=== PATIENT | male | born 1970 | race Caucasian/White ===

== ENCOUNTER 2019-02-12 15:06 | Outpatient (REF) | payer MEDICAID, SELFPAY ==
[2019-02-12 18:54] LABS: Abs Immature Grans 0.04 k/cumm (0.0-0.09); Absolute Basophil Count 0.03 k/cumm (0.0-0.2); Absolute Eosinophil Count 0.12 k/cumm (0.0-0.7); Absolute Lymphocyte Count 2.11 k/cumm (1.2-3.4); Absolute Monocyte Count 0.66 k/cumm (0.11-0.7); Absolute Neutrophil Count 4.55 k/cumm (1.2-6.7); Basophils % 0.4; Eosinophils % 1.6; Immature Grans % 0.5; Lymphocytes % 28.1; Mean Corp. HGB Concentration 35.7 g/dL (32.0-36.0); Mean Corpuscular Hemoglobin 31.1 pg (27.0-33.0); Mean Corpuscular Volume 87.1 fL (80-95); Mean Platelet Volume 9.6 fL (8.0-11.0); Monocytes % 8.8; Neutrophils % 60.6; Platelet Count 312 x1000/uL (130-400); RBC 4.82 m/cumm (4.50-6.00); RBC Distribution Width 12.1 % (11.8-14.1); White Blood Cell Count 7.51 k/cumm (4.4-10.8)
[2019-02-12 19:11] LABS: ALT 33 U/L (12-78); AST 16 U/L (15-37); Albumin 4.4 g/dL (3.4-5.0); Alkaline Phosphatase 87 U/L (46-116); Anion Gap 9.5 mmol/L (3-11); BUN 18 mg/dL (7-18); Bilirubin, Total 0.6 mg/dL (0.2-1.0); CO2 27.5 mmol/L (21.0-32.0); CREATININE 1.05 mg/dL (0.70-1.30); Chloride 105 mmol/L (98-107); Creatine Kinase 78 U/L (39-308); Glucose 101 mg/dL (70-100); Potassium 3.9 mmol/L (3.5-5.1); Sodium 142 mmol/L (136-145); TSH 1.17 uIU/mL (0.36-3.74); Total Protein 7.4 g/dL (6.4-8.2)
[2019-02-12 19:59] LABS: ESR 7 mm/hr (0-15)
[2019-02-13 16:27] LABS: CRP, High Sensitivity 1.53 mg/L
[2019-02-14 05:53] LABS: Vitamin D 25 Total 57.5 ng/ml (30-100)
[2019-02-14 10:47] LABS: HIV-1/2 Ag & Ab Screen Negative (NEGAT)
[2019-02-14 10:55] LABS: Hepatitis C Ab w Rflx HCV PCR Negative (NEGAT)
[2019-02-14 12:14] LABS: Lyme Ab w Rflx to Lyme Confirm Negative
[2019-02-14 15:25] LABS: ANA Interpretation Negative (NEGAT)
[2019-02-15 01:45] LABS: Anaplasma phagocytophilum Negative (Negative); B. miyamotoi PCR Negative (Negative); Babesia divergens/MO-1 Negative (Negative); Babesia duncani Negative (Negative); Babesia microti Negative (Negative); Ehrlichia chaffeensis Negative (Negative); Ehrlichia ewingii/canis Negative (Negative); Ehrlichia muris eauclairensis Negative (Negative)
== END 2019-02-12 15:26 ==
LOC: NCHCN 15:06
PROVIDERS: PCP Internal Medicine; Visit Provider Nurse Practitioner Family
DX: R68.89 Other general symptoms and signs (principal); R53.83 Other fatigue; R53.81 Other malaise; Z11.4 Encounter for screening for human immunodeficiency virus [HIV]; Z11.59 Encounter for screening for other viral diseases
CPT/HCPCS: 80053; 82306; 82550; 85652; 86141; 86803; 87389; 87798; 84443; 85025; 86038; 86618

== ENCOUNTER 2023-01-20 13:31 | Outpatient (REF) | payer MEDICAID, SELFPAY ==
[2023-01-20 19:00] LABS: Abs Immature Grans 0.07 10^3/uL (0.0-0.06); Absolute Basophil Count 0.07 10^3/uL (0.0-0.2); Absolute Eosinophil Count 0.15 10^3/uL (0.0-0.7); Absolute Lymphocyte Count 2.02 10^3/uL (1.2-3.4); Absolute Monocyte Count 0.71 10^3/uL (0.1-0.8); Absolute Neutrophil Count 4.56 10^3/uL (1.2-6.7); Basophils % 0.9; HCT 40.7 % (40.0-50.0); HGB 14.5 g/dL (13.5-17.5); Immature Grans % 0.9; Lymphocytes % 26.6; MCH 30.8 pg (27.0-33.0); MCHC 35.6 % (32.0-36.0); MCV 86 fL (80-95); MPV 9.5 fL (8.0-11.0); Monocytes % 9.4; Neutrophils % 60.2; Platelet Count 265 10^3/uL (130-400); RBC 4.71 10^6/uL (4.36-5.78); RDW 11.9 % (11.8-14.1); RDW-SD 37.4 fL; WBC 7.58 10^3/uL (4.4-10.8)
[2023-01-20 19:40] LABS: ALT 47 U/L (16-63); AST 29 U/L (15-37); Albumin 3.8 g/dL (3.4-5.0); Alkaline Phosphatase 96 U/L (46-116); Anion Gap 9.9 mmol/L (3-11); BUN 19 mg/dL (7-18); Bilirubin, Total 0.7 mg/dL (0.2-1.0); CO2 26.1 mmol/L (21.0-32.0); CREATININE 1.1 mg/dL (0.70-1.30); Calcium 8.5 mg/dL (8.5-10.1); Chloride 106 mmol/L (98-107); Estimated GFR 80.27 (mL/min/1.73m2); Glucose 110 mg/dL (74-106); Magnesium 2.2 mg/dL (1.8-2.4); Potassium 3.8 mmol/L (3.5-5.1); Sodium 142 mmol/L (136-145); Total Protein 6.8 g/dL (6.4-8.2); Vitamin B12 533 pg/mL (193-986)
[2023-01-25 09:47] LABS: Methylmalonic Acid 0.12 nmol/mL (<=0.40)
== END 2023-01-20 13:32 | disposition home or self-care (01) ==
LOC: NCHCN 13:31
PROVIDERS: PCP Internal Medicine; Visit Provider Physician Assistant
DX: R53.1 Weakness (principal); F10.10 Alcohol abuse, uncomplicated
CPT/HCPCS: 80053; 80186; 82607; 83735; 84443; 85025

== ENCOUNTER 2024-03-14 12:02 | Outpatient (CLI) | payer MEDICAID, SELFPAY ==
--- NOTE | 2024-03-14 09:45 | DI.RAD_ITS ---
Exam(s) XR HIP PELVIS ADULT BL EXAM: XR HIP PELVIS ADULT BL CLINICAL HISTORY: Eval hip for potential weakness source. TECHNIQUE: 2D digital imaging was performed. Three views. COMPARISON: No exams were available for comparison FINDINGS: BONES: No acute fracture is present. No bony destructive lesion is seen. JOINTS: No dislocation present. The hip joint spaces are maintained. Mild spurring at the superior a spect of the acetabula bilaterally. SI joints and pubic symphysis are unremarkable. SOFT TISSUE: Normal. IMPRESSION: Minimal degenerative changes of the hips. DATA REPOSITORY: RADIATION DOSE DELIVERED:
== END 2024-03-14 12:03 | disposition home or self-care (01) ==
LOC: DIORS 12:02
PROVIDERS: PCP Internal Medicine; Visit Provider Student in an Organized Health Care Education/Training Program
DX: M16.0 Bilateral primary osteoarthritis of hip (principal)
CPT/HCPCS: 73521

== ENCOUNTER 2025-03-05 16:34 | Outpatient (REF) | payer MEDICAID, SELFPAY ==
[2025-03-05 20:27] LABS: Abs Immature Grans 0.10 10^3/uL (0.0-0.06); HCT 42.5 % (40.0-50.0); HGB 15.2 g/dL (13.5-17.5); Immature Grans % 0.8 %; MCH 31.0 pg (27.0-33.0); MCHC 35.8 % (32.0-36.0); MCV 87 fL (80-95); MPV 9.3 fL (8.0-11.0); Platelet Count 308 10^3/uL (130-400); RBC 4.91 10^6/uL (4.36-5.78); RDW 11.9 % (11.8-14.1); RDW-SD 37.7 fL; WBC 12.91 10^3/uL (4.4-10.8)
[2025-03-05 20:45] LABS: Iron 110 ug/dL (65-175); Total Iron Binding Capacity 331 ug/dL (250-450); Transferrin Sat 33 % (20-55)
[2025-03-05 20:55] LABS: ALT 45 U/L (16-63); AST 26 U/L (15-37); Albumin 4.3 g/dL (3.4-5.0); Alkaline Phosphatase 101 U/L (46-116); Anion Gap 7.7 mmol/L (3-11); BUN 20 mg/dL (7-18); Bilirubin, Total 0.7 mg/dL (0.2-1.0); CO2 27.3 mmol/L (21.0-32.0); Calcium 9.2 mg/dL (8.5-10.1); Chloride 105 mmol/L (98-107); Estimated GFR 79.28 (mL/min/1.73m2); Ferritin 434 ng/mL (26-388); Glucose 108 mg/dL (74-106); Potassium 4.1 mmol/L (3.5-5.1); Sodium 140 mmol/L (136-145); Total Protein 7.6 g/dL (6.4-8.2)
[2025-03-06 18:45] LABS: PSA, Screening 0.5 ng/mL (<=3.5)
== END 2025-03-05 16:35 | disposition home or self-care (01) ==
LOC: NCHCN 16:34
PROVIDERS: PCP Internal Medicine; Visit Provider Physician Assistant
DX: Z12.5 Encounter for screening for malignant neoplasm of prostate (principal); F41.9 Anxiety disorder, unspecified; R06.02 Shortness of breath
CPT/HCPCS: 80053; 84153; 82728; 83540; 83550; 85025